=== PATIENT | female | born 1940 | race Caucasian/White ===

== ENCOUNTER 2017-09-26 14:01 | Day surgery (SDC) | payer OTHER, SELFPAY ==
[~2017-09-26] VITALS: Ht 160 cm; Wt 67.3 kg
[~2017-09-26 14:01] MED LIST: ASPI81CH PO; ATOR80 PO; CLOP75 PO; DEXL60CA3; FAMO40; FAMO40 PO; ISODIN20 PO; ISOSORBIDE; Isosorbide Dini30 MG PO; LEVOTHYROXINE; LEVSOD100 PO; LOSA50 PO; LOSARTAN; METF500; METFORMIN; METO50 PO; METOPROLOL; Metformin HCl1000 MG PO; Mobic15 MG PO; Mobic7.5 MG PO; Norco 10-325 T1 EACH PO; OMEGA-3 KRILL1 EAC2 PO; PROCODE120 PO; Pepcid40 MG PO; Prednisone20 MG PO; RED YEAST RIC1000 GM PO; TIZANIDINE HCL4 MG; ZOLP10 PO; Zofran Odt4 MG SL
[2018-07-05] MEDS ORDERED: AMLO5 PO (11:28)
[2018-07-05] MEDS ORDERED: FAMO40 PO (11:29)
[2018-07-05] MEDS ORDERED: ESCI10 PO (11:29)
[2018-07-05] MEDS ORDERED: CLOP75 PO (11:29)
[2018-07-05] MEDS ORDERED: ASPI81CH PO (11:29)
[2018-07-05] MEDS ORDERED: ATOR80 PO (11:29)
[2018-07-05] MEDS ORDERED: LORCET HD 10-31 EACH PO (11:30)
[2018-07-05] MEDS ORDERED: ISODIN10 PO (11:30)
[2018-07-05] MEDS ORDERED: LOSA50 PO (11:31)
[2018-07-05] MEDS ORDERED: METO50 PO (11:31)
[2018-07-05] MEDS ORDERED: LEVSOD100 PO (11:31)
[2018-07-05] MEDS ORDERED: METF500C PO (11:31)
[2018-07-05] MEDS ORDERED: Omeprazole20 M1 PO (11:32)
[2018-07-05] MEDS ORDERED: NITR.4SL SL (11:32)
[2018-07-05] MEDS ORDERED: ALBU90OI61 INH (11:33)
[2018-07-05] MEDS ORDERED: PANT40 PO (11:33)
[2018-07-05] MEDS ORDERED: K-Dur20 MEQ PO (13:03)
[2018-07-05] MEDS ORDERED: Augmentin 875-1 EACH PO (13:03)
[2018-08-04] MEDS ORDERED: ZOLP10 PO (11:29)
[2018-08-04] MEDS ORDERED: Lomotil Tablet1 EACH PO (13:11)
[2018-08-04] MEDS ORDERED: CEPH500 PO (13:11)
== END 2017-09-26 16:33 | disposition home or self-care (01) ==
LOC: ORSCSDS 14:01
DX: R11.2 Nausea with vomiting, unspecified (principal); K44.9 Diaphragmatic hernia without obstruction or gangrene; K22.2 Esophageal obstruction; I25.10 Atherosclerotic heart disease of native coronary artery without angina pectoris; Z80.0 Family history of malignant neoplasm of digestive organs; K29.70 Gastritis, unspecified, without bleeding; K21.9 Gastro-esophageal reflux disease without esophagitis; E78.00 Pure hypercholesterolemia, unspecified; R10.9 Unspecified abdominal pain; E11.9 Type 2 diabetes mellitus without complications; I10 Essential (primary) hypertension; E78.5 Hyperlipidemia, unspecified; Z79.84 Long term (current) use of oral hypoglycemic drugs; Z79.899 Other long term (current) drug therapy
CPT/HCPCS: 82947; 88305; 88342; J7120

== ENCOUNTER 2018-01-09 14:07 | Inpatient (IN) | payer OTHER ==
[~2018-01-09] VITALS: Ht 160 cm; Wt 69.0 kg
[~2018-01-09 14:07] MED LIST changes: +ISODIN20; -ISODIN20 PO
[2018-01-09 14:39] LABS: BASOPHILS ABSOLUTE AUTO 0.07 K/mm3 (0.00-0.23); BASOPHILS PERCENT AUTO 1 % (0-2); EOSINOPHILS ABSOLUTE AUTO 0.53 K/mm3 (0.00-0.68); EOSINOPHILS PERCENT AUTO 6 % (0-6); Hematocrit 34.2 % (33.0-51.0); Hemoglobin 11.2 g/dL (11.5-16.0); IMMATURE GRAN ABSOLUTE AUTO 0.03 K/mm3 (0.00-0.10); IMMATURE GRAN PERCENT AUTO 0 % (0-1); LYMPHOCYTES ABSOLUTE AUTO 2.32 K/mm3 (0.84-5.20); LYMPHOCYTES PERCENT AUTO 27 % (21-46); MONOCYTES ABSOLUTE AUTO 0.76 K/mm3 (0.16-1.47); MONOCYTES PERCENT AUTO 9 % (4-13); Mean Corpuscular HGB Conc 32.7 g/dL (31.5-36.5); Mean Corpuscular Volume 89 fL (80-100); Mean Platelet Volume 11.1 fL (9.1-12.4); NEUTROPHILS ABSOLUTE AUTO 4.94 K/mm3 (1.96-9.15); NEUTROPHILS PERCENT AUTO 57 % (41-73); Platelet Count 262 K/mm3 (150-400); RDW Coefficient Variation 13.2 % (11.7-14.2); RDW Standard Deviation 42.9 fL (35.1-46.3); Red Blood Cell Count 3.86 M/mm3 (3.80-5.20); White Blood Cell Count 8.65 K/mm3 (4.00-11.30)
[2018-01-09 15:03] LABS: Alanine Aminotransfer (ALT/SGP 23 U/L (12-78); Albumin, Blood 3.5 g/dL (3.4-5.0); Albumin/Globulin Ratio 1.1 (0.8-1.8); Alk Phos 61 U/L (50-136); Anion Gap 11 mmol/L (6-16); Aspartate Aminotrans (AST/SGOT 22 U/L (12-37); Bilirubin, Total 0.5 mg/dL (0.1-1.0); Blood Urea Nitrogen 18 mg/dL (8-24); Bun/Creatinine Ratio 19.2 (12.0-20.0); CO2, Blood 23 mmol/L (21-32); Chloride, Blood 108 mmol/L (98-108); Creatinine, Blood 0.94 mg/dL (0.40-1.00); Globulin, Blood 3.1 g/dL (2.2-4.0); Glomerular Filtration Rate >60 (60-); Glucose, Blood 133 mg/dL (70-99); Sodium, Blood 142 mmol/L (136-145); Total Protein, Blood 6.6 g/dL (6.4-8.2); Troponin I <0.015 ng/mL (0.000-0.040)
[2018-01-09 15:07] LABS: Thyroid Stimulating Hormone 0.219 uIU/mL (0.360-4.800)
[2018-01-09 15:37] LABS: Free Thyroxine 1.47 ng/dL (0.70-1.60)
[2018-01-10 02:36] LABS: Alanine Aminotransfer (ALT/SGP 20 U/L (12-78); Albumin, Blood 3.3 g/dL (3.4-5.0); Albumin/Globulin Ratio 1.2 (0.8-1.8); Alk Phos 55 U/L (50-136); Anion Gap 7 mmol/L (6-16); Aspartate Aminotrans (AST/SGOT 18 U/L (12-37); Bilirubin, Total 0.6 mg/dL (0.1-1.0); Blood Urea Nitrogen 17 mg/dL (8-24); Bun/Creatinine Ratio 18.8 (12.0-20.0); CO2, Blood 25 mmol/L (21-32); Chloride, Blood 112 mmol/L (98-108); Globulin, Blood 2.7 g/dL (2.2-4.0); Glomerular Filtration Rate >60 (60-); Glucose, Blood 107 mg/dL (70-99); Potassium, Blood 4.2 mmol/L (3.5-5.5); Sodium, Blood 144 mmol/L (136-145)
[2018-01-11] MEDS ORDERED: METO50 PO (17:45)
[2018-01-11] MEDS ORDERED: AMLO5 PO (17:45)
[2018-01-11] MEDS ORDERED: PANT40 PO (17:46)
== END 2018-01-11 18:33 | disposition home or self-care (01) | DRG 311 ==
LOC: ER 14:07 → MEDS 17:09 → PCU 17:09 → MEDS 18:25 → PCU 01-10 11:09
PROVIDERS: Physician Assistant; Student in an Organized Health Care Education/Training Program
DX: I20.0 Unstable angina (principal); I10 Essential (primary) hypertension
CPT/HCPCS: 36415; 71046; 78452; 80053; 82947; 84439; 84443; 84484; 85025; 85379; 93005; 93010; 93017; 93306; 96360; 99285; A9500; J0280; J0360; J2785; J7030

== ENCOUNTER 2018-03-04 13:44 | Inpatient (IN) | payer OTHER ==
[~2018-03-04] VITALS: Ht 160 cm; Wt 68.2 kg
[~2018-03-04 13:44] MED LIST changes: +AMLO5 PO; -ISODIN20; +ISODIN20 PO; +PANT40 PO
[2018-03-04 19:29] LABS: Hematocrit 30.7 % (33.0-51.0); Hemoglobin 10.3 g/dL (11.5-16.0); Mean Corpuscular HGB Conc 33.6 g/dL (31.5-36.5); Mean Corpuscular Volume 95 fL (80-100); Mean Platelet Volume 10.8 fL (9.1-12.4); Platelet Count 210 K/mm3 (150-400); RDW Coefficient Variation 14.5 % (11.7-14.2); RDW Standard Deviation 43.8 fL (35.1-46.3); Red Blood Cell Count 3.22 M/mm3 (3.80-5.20); White Blood Cell Count 6.18 K/mm3 (4.00-11.30)
[2018-03-04 19:36] LABS: Anion Gap 10 mmol/L (6-16); Blood Urea Nitrogen 9 mg/dL (8-24); Bun/Creatinine Ratio 10.7 (12.0-20.0); CO2, Blood 21 mmol/L (21-32); Calcium, Blood 8.5 mg/dL (8.5-10.1); Chloride, Blood 108 mmol/L (98-108); Creatinine, Blood 0.85 mg/dL (0.40-1.00); Glomerular Filtration Rate >60 (60-); Glucose, Blood 117 mg/dL (70-99); Sodium, Blood 139 mmol/L (136-145)
[2018-03-04 20:51] LABS: Hematocrit 32.3 % (33.0-51.0); Hemoglobin 10.4 g/dL (11.5-16.0)
[2018-03-05 05:24] LABS: Hematocrit 26.2 % (33.0-51.0); Hemoglobin 8.9 g/dL (11.5-16.0)
[2018-03-05 05:42] LABS: Anion Gap 7 mmol/L (6-16); Blood Urea Nitrogen 7 mg/dL (8-24); Bun/Creatinine Ratio 8.4 (12.0-20.0); CO2, Blood 26 mmol/L (21-32); Calcium, Blood 8.2 mg/dL (8.5-10.1); Chloride, Blood 110 mmol/L (98-108); Creatinine, Blood 0.84 mg/dL (0.40-1.00); Glomerular Filtration Rate >60 (60-); Glucose, Blood 98 mg/dL (70-99); Potassium, Blood 3.8 mmol/L (3.5-5.5); Sodium, Blood 143 mmol/L (136-145)
[2018-03-05 13:40] LABS: Hematocrit 24.7 % (33.0-51.0); Hemoglobin 7.9 g/dL (11.5-16.0)
[2018-03-06 03:39] LABS: BASOPHILS ABSOLUTE AUTO 0.05 K/mm3 (0.00-0.23); BASOPHILS PERCENT AUTO 1 % (0-2); EOSINOPHILS ABSOLUTE AUTO 0.43 K/mm3 (0.00-0.68); EOSINOPHILS PERCENT AUTO 6 % (0-6); Hemoglobin 10.6 g/dL (11.5-16.0); IMMATURE GRAN ABSOLUTE AUTO 0.03 K/mm3 (0.00-0.10); IMMATURE GRAN PERCENT AUTO 0 % (0-1); LYMPHOCYTES ABSOLUTE AUTO 2.12 K/mm3 (0.84-5.20); LYMPHOCYTES PERCENT AUTO 29 % (21-46); MONOCYTES ABSOLUTE AUTO 0.67 K/mm3 (0.16-1.47); MONOCYTES PERCENT AUTO 9 % (4-13); Mean Corpuscular HGB 29.1 pg (26.0-34.0); Mean Corpuscular HGB Conc 33.1 g/dL (31.5-36.5); Mean Corpuscular Volume 88 fL (80-100); Mean Platelet Volume 10.6 fL (9.1-12.4); NEUTROPHILS ABSOLUTE AUTO 3.91 K/mm3 (1.96-9.15); NEUTROPHILS PERCENT AUTO 54 % (41-73); Platelet Count 222 K/mm3 (150-400); RDW Coefficient Variation 13.5 % (11.7-14.2); RDW Standard Deviation 41.9 fL (35.1-46.3); Red Blood Cell Count 3.64 M/mm3 (3.80-5.20); White Blood Cell Count 7.21 K/mm3 (4.00-11.30)
[2018-03-06 03:55] LABS: Anion Gap 7 mmol/L (6-16); Blood Urea Nitrogen 13 mg/dL (8-24); Bun/Creatinine Ratio 16.5 (12.0-20.0); CO2, Blood 24 mmol/L (21-32); Calcium, Blood 8.4 mg/dL (8.5-10.1); Chloride, Blood 113 mmol/L (98-108); Creatinine, Blood 0.79 mg/dL (0.40-1.00); Glomerular Filtration Rate >60 (60-); Glucose, Blood 113 mg/dL (70-99); Potassium, Blood 4.1 mmol/L (3.5-5.5); Sodium, Blood 144 mmol/L (136-145)
== END 2018-03-06 13:55 | disposition home or self-care (01) | DRG 920 ==
LOC: ORSCSDS 13:44 → MEDS 18:05 → ICUE 03-05 15:06 → MEDS 03-05 15:06 → ICUE 03-05 15:34
PROVIDERS: Internal Medicine; Internal Medicine Gastroenterology; Nurse Practitioner Acute Care
PROC: 0DBL8ZX Excision of Transverse Colon, Via Natural or Artificial Opening Endoscopic, Diagnostic (ICD-10-PCS; 2018-03-04)
PROC: 30233R1 Transfusion of Nonautologous Platelets into Peripheral Vein, Percutaneous Approach (ICD-10-PCS; 2018-03-04)
PROC: 0DBK8ZX Excision of Ascending Colon, Via Natural or Artificial Opening Endoscopic, Diagnostic (ICD-10-PCS; principal; 2018-03-04 15:15)
PROC: 30233N1 Transfusion of Nonautologous Red Blood Cells into Peripheral Vein, Percutaneous Approach (ICD-10-PCS; 2018-03-05)
DX: K91.840 Postprocedural hemorrhage of a digestive system organ or structure following a digestive system procedure (principal); I47.1 Supraventricular tachycardia; D62 Acute posthemorrhagic anemia; Z79.01 Long term (current) use of anticoagulants; E03.9 Hypothyroidism, unspecified; Z95.5 Presence of coronary angioplasty implant and graft; E78.5 Hyperlipidemia, unspecified; E11.9 Type 2 diabetes mellitus without complications; K21.9 Gastro-esophageal reflux disease without esophagitis; K44.9 Diaphragmatic hernia without obstruction or gangrene; Z79.84 Long term (current) use of oral hypoglycemic drugs; Z87.891 Personal history of nicotine dependence; D12.3 Benign neoplasm of transverse colon; D12.2 Benign neoplasm of ascending colon; K57.30 Diverticulosis of large intestine without perforation or abscess without bleeding
CPT/HCPCS: 36415; 36430; 80048; 82947; 85014; 85018; 85025; 85027; 86850; 86900; 86901; 86923; 88305; G0378; J0360; J3010; J7030; J7040; J7120; P9016; P9035

== ENCOUNTER → 2018-03-28 | Outpatient (CLI) | payer OTHER | LOC: LAB 12:30 → LAB SHORT 12:30 | DX: N39.0 Urinary tract infection, site not specified (principal) | CPT/HCPCS: 87077; 87086; 87186 ==

== ENCOUNTER → 2018-07-24 | Outpatient (CLI) | payer OTHER ==
[~2018-07-24] MED LIST changes: +ALBU90OI61 INH; +Augmentin 875-1 EACH PO; +CEPH500 PO; +ESCI10 PO; +ISODIN10 PO; +K-Dur20 MEQ PO; +LORCET HD 10-31 EACH PO; +Lomotil Tablet1 EACH PO; +METF500C PO; +NITR.4SL SL; +Omeprazole20 M1 PO
== END ==
LOC: LAB SHORT 14:44 → LAB 14:44 → LAB FUT 04-12 11:40
DX: R10.9 Unspecified abdominal pain (principal)
CPT/HCPCS: 87015; 87116; 87206

== ENCOUNTER 2018-09-18 12:48 | Day surgery (SDC) | payer OTHER ==
[~2018-09-18] VITALS: Ht 160 cm; Wt 63.1 kg
--- NOTE | 2018-09-18 13:39 | NUR ---
09/18/18 1339 Lulu Carter GROUNDING PAD ON RIGHT FLANK--NO PROBLEMS
--- NOTE | 2018-09-18 14:55 | NUR ---
09/18/18 1455 Lulu Carter LATE ENTRY---UPON ENTERING STEPDOWN, PATIENT C/O PAIN IN "STOMACH" 02/17 AND SHE DESCRIBES HER PAIN TENDER. ALSO ADMITS TO SORE THROAT 10/20. PATIENT DID VOMIT DURING PROCEDURE I EXPLAINED THIS TO THE PATIENT AND EXPLAINED THIS IS PROBABLY WHY HER THROAT IS SORE. DISCUSSED WITH PATIENT AND TO WATCH CLOSELY FOR ANY RESPIRATORY PROBLEMS, SHORTNESS OF BREATH, FEVER. COUGH, ETC AND CALL DR LOBO IF ANY PROBLEMS. BOTH PATIENT AND SPOUSE VERBALIZED UNDERSTANDING. ABD PAIN CONTINUED AT ROUGHOUT HER RECOVERY. SHE KEPT DESCRIBING IT TENDER. PATIENT REFUSED TO WAIT LONGER, AND WANTED TO GO HOME WITH 610 PAIN. THIS WAS DISCUSSED WITH DR LOBO AND HE AGREES TO HER GOING HOME AND SHE WAS TOLD TO CALL HIM IF ANY PROBLEMS. PATIENT WAS DISCHARGED IN STABLE CONDITION
--- NOTE | 2018-09-18 14:59 | NUR ---
09/18/18 1459 Lulu Carter LATE ENTRY---PATIENT WAS VERY UNCLEAR ABOUT WHEN SHE ACTUALLY STOPPED DRINKING. ADMITTED TO A "MOUTHFUL" OF WATER AT ABOUT NOON BUT WAS UPSET AND APPEARED ANGRY WHEN SHE WAS BEING QUESTIONED. I EXPLAINED WHY THIS WAS IMPORTANT AND SHE VERBALIZED UNDERSTANDING AND STUCK WITH HER PREVIOUS ANSWER OF A MOUTHFUL OF WATER AT NOON
== END 2018-09-18 14:30 | disposition home or self-care (01) ==
LOC: ORSCSDS 12:48
PROVIDERS: Internal Medicine Gastroenterology
PROC: 0DBK8ZX Excision of Ascending Colon, Via Natural or Artificial Opening Endoscopic, Diagnostic (ICD-10-PCS; principal; 2018-09-18 14:15)
DX: D12.2 Benign neoplasm of ascending colon (principal); K64.8 Other hemorrhoids; K57.30 Diverticulosis of large intestine without perforation or abscess without bleeding; Z80.0 Family history of malignant neoplasm of digestive organs; I10 Essential (primary) hypertension; E78.5 Hyperlipidemia, unspecified; E11.9 Type 2 diabetes mellitus without complications; I25.10 Atherosclerotic heart disease of native coronary artery without angina pectoris; Z79.01 Long term (current) use of anticoagulants; Z79.84 Long term (current) use of oral hypoglycemic drugs; Z79.899 Other long term (current) drug therapy; Z87.891 Personal history of nicotine dependence
CPT/HCPCS: 82947; 88305; J2405; J7120

== ENCOUNTER 2018-12-05 02:09 | Inpatient (IN) | payer OTHER ==
[~2018-12-05] VITALS: Ht 160 cm; Wt 62.2 kg
[2018-12-05 02:29] LABS: BASOPHILS ABSOLUTE AUTO 0.08 K/mm3 (0.00-0.23); BASOPHILS PERCENT AUTO 1 % (0-2); EOSINOPHILS ABSOLUTE AUTO 0.68 K/mm3 (0.00-0.68); EOSINOPHILS PERCENT AUTO 7 % (0-6); Hematocrit 38.3 % (33.0-51.0); Hemoglobin 12.7 g/dL (11.5-16.0); IMMATURE GRAN ABSOLUTE AUTO 0.05 K/mm3 (0.00-0.10); IMMATURE GRAN PERCENT AUTO 1 % (0-1); LYMPHOCYTES ABSOLUTE AUTO 1.83 K/mm3 (0.84-5.20); LYMPHOCYTES PERCENT AUTO 19 % (21-46); MONOCYTES PERCENT AUTO 6 % (4-13); Mean Corpuscular HGB 30.2 pg (26.0-34.0); Mean Corpuscular HGB Conc 33.2 g/dL (31.5-36.5); Mean Corpuscular Volume 91 fL (80-100); Mean Platelet Volume 9.6 fL (9.1-12.4); NEUTROPHILS ABSOLUTE AUTO 6.47 K/mm3 (1.96-9.15); NEUTROPHILS PERCENT AUTO 67 % (41-73); Platelet Count 264 K/mm3 (150-400); RDW Coefficient Variation 12.8 % (11.7-14.2); RDW Standard Deviation 41.8 fL (35.1-46.3); White Blood Cell Count 9.71 K/mm3 (4.00-11.30)
[2018-12-05 02:50] LABS: Alanine Aminotransfer (ALT/SGP 26 U/L (12-78); Albumin, Blood 4.1 g/dL (3.4-5.0); Albumin/Globulin Ratio 1.4 (0.8-1.8); Alk Phos 62 U/L (50-136); Anion Gap 9 mmol/L (6-16); Aspartate Aminotrans (AST/SGOT 25 U/L (12-37); Bilirubin, Total 0.7 mg/dL (0.1-1.0); Blood Urea Nitrogen 13 mg/dL (8-24); CO2, Blood 24 mmol/L (21-32); Calcium, Blood 9.9 mg/dL (8.5-10.1); Chloride, Blood 95 mmol/L (98-108); Creatinine, Blood 1.08 mg/dL (0.40-1.00); Globulin, Blood 2.9 g/dL (2.2-4.0); Glomerular Filtration Rate 52 (60-); Glucose, Blood 118 mg/dL (70-99); Potassium, Blood 4.8 mmol/L (3.5-5.5); Sodium, Blood 128 mmol/L (136-145); Troponin I <0.015 ng/mL (0.000-0.040)
[2018-12-05 03:05] LABS: Source, Urine Clean Catch
[2018-12-05 03:07] LABS: Blood, Urine Neg (Neg); Glucose Qualitative, Urine Neg (Neg); Ketones, Urine Neg (Neg); Leukocyte Esterase, Urine 1+ (Neg); Nitrite, Urine Pos (Neg); Protein, Urine Neg (Neg); Urobilinogen, Urine 1+ (Normal)
[2018-12-05 03:35] LABS: Bilirubin, Urine 1+ (Neg)
[2018-12-05 03:36] LABS: Appearance, Urine Clear (Clear); Bacteria Few /hpf; Color, Urine Amber (P-Yellow); Red Blood Cells, Urine Not Seen /hpf (0-2); Squamous Epithelial Cells Not Seen /hpf (Few); White Blood Cells, Urine 0-2 /hpf (0-5)
--- NOTE | 2018-12-05 07:12 | NUR ---
SHIFT SUMMARY PT ADMITTED LAST NIGHT FOR LEFT HIP FX. PT BECAME DIZZY AND CONFUSED FOLLOWING TAKING HER REGULAR AMBIEN AND SOME NYQUIL BEFORE BED, CAUSING HER TO FALL. SHE DOES NOT REMEMBER THE INCIDENT. PT IS A&O, ABLE TO MAKE NEEDS KNOWN. TELE WAS NSR AT TIME OF ASSESSMENT. MARES PLACED IN ED, PT HAD A UTI AT HOME ON ADMIT AND WAS ON HER LAST DOSING OF ANTIBIOTICS PER HER REPORT. REPORT PASSED TO ONCOMING SHIFT.
--- NOTE | 2018-12-05 09:41 | NUR ---
ASSUMED CARE OF PT FROM [facility].
--- NOTE | 2018-12-05 18:16 | NUR ---
SUMMARY NO ACUTE CHANGES SINCE ASSUMING CARE OF PT. MEDICATED PER ORDERS T/O DAY FOR PAIN. MARES CATH DRAINING CLEAR BARLOW YELLOW. [facility]G'S ORDERED THIS AFTERNOON. NO COVERAGE NEEDED FOR DINNER PER ORDERS. PT PLEASANT AND COOPERATIVE. CALL LIGHT IN REACH.
--- NOTE | 2018-12-06 04:47 | NUR ---
SHIFT SUMMARY PT ADMITTED FOR LEFT HIP FX, SCHEDULED FOR SURGERY TODAY. PT IS GENERALLY ORIENTED BUT BECAME CONFUSED AFTER WAKING FROM A DEEP SLEEP AND PULLED OFF HER STAT LOCK, TELE, AND PULSE OX AND TRIED TO GET UP TO STOP THE BEEPING FROM THE PULSE OX. BED ALARM IS ON FOR SAFETY. PT IS NPO IN PREP FOR SURGERY TODAY. TELE WAS SINUS WITH A FIRST DEGREE BLOCK IN THE 60S AT TIME OF ASSESSMENT. MEDIPORE DRESSING TO SKIN TEAR ON RIGHT ARM. PT IS SL, HAD GOOD ORAL INTAKE BEFORE BECOMING NPO. NO COVERAGE INDICATED AT HS. MEDICATED FOR PAIN PER EMAR. WILL CTM UNTIL PASS TO NEXT SHIFT.
--- NOTE | 2018-12-06 11:43 | NUR ---
pt to surgery
--- NOTE | 2018-12-06 11:55 | NUR ---
ASSUMED CARE OF PATIENT RECIEVED REPORT FROM [facility]. ADMISSION TO UNIT STARTED.
--- NOTE | 2018-12-06 14:55 | NUR ---
turned over care to elissa lunsford rn reported off.
--- NOTE | 2018-12-07 05:13 | NUR ---
SHIFT SUMMARY: PT POD #1 FOR L HIP PINNING. GAUZE TO L HIP CDI T/O SHIFT. A&O X4. O2 92-94% WHILE AWAKE. DECREASED TO 88-90% WHILE SLEEPING. ON RA. ALL OTHER VS WNL. PT ENC TO DEEP BREATH. 50% WB ON L LEG. PAIN MANAGED WITH NORCO PER EMAR. GIVEN ZOFRAN ONCE FOR C/O MILD NAUSEA THIS AM. MARES TAKEN OUT AT APPROX 0425. WAITING FOR PT TO VOID.
[2018-12-07 10:01] LABS: BASOPHILS ABSOLUTE AUTO 0.01 K/mm3 (0.00-0.23); BASOPHILS PERCENT AUTO 0 % (0-2); EOSINOPHILS ABSOLUTE AUTO 0.26 K/mm3 (0.00-0.68); EOSINOPHILS PERCENT AUTO 4 % (0-6); Hematocrit 30.3 % (33.0-51.0); Hemoglobin 10.3 g/dL (11.5-16.0); IMMATURE GRAN ABSOLUTE AUTO 0.03 K/mm3 (0.00-0.10); IMMATURE GRAN PERCENT AUTO 0 % (0-1); LYMPHOCYTES PERCENT AUTO 11 % (21-46); MONOCYTES ABSOLUTE AUTO 0.42 K/mm3 (0.16-1.47); MONOCYTES PERCENT AUTO 6 % (4-13); Mean Corpuscular HGB 30.9 pg (26.0-34.0); Mean Corpuscular Volume 91 fL (80-100); Mean Platelet Volume 9.5 fL (9.1-12.4); NEUTROPHILS PERCENT AUTO 79 % (41-73); Platelet Count 221 K/mm3 (150-400); RDW Coefficient Variation 12.6 % (11.7-14.2); RDW Standard Deviation 41.2 fL (35.1-46.3); Red Blood Cell Count 3.33 M/mm3 (3.80-5.20); White Blood Cell Count 7.32 K/mm3 (4.00-11.30)
--- NOTE | 2018-12-07 10:21 | NUR ---
DR YOUNG RECENTLY HERE. DISCUSSED BOWEL CARE WITH DR AND PT.
[2018-12-07 10:26] LABS: Alanine Aminotransfer (ALT/SGP 17 U/L (12-78); Albumin/Globulin Ratio 1.1 (0.8-1.8); Alk Phos 48 U/L (50-136); Anion Gap 9 mmol/L (6-16); Aspartate Aminotrans (AST/SGOT 20 U/L (12-37); Bilirubin, Total 0.7 mg/dL (0.1-1.0); Blood Urea Nitrogen 12 mg/dL (8-24); Bun/Creatinine Ratio 13.5 (12.0-20.0); CO2, Blood 23 mmol/L (21-32); Calcium, Blood 8.2 mg/dL (8.5-10.1); Chloride, Blood 90 mmol/L (98-108); Creatinine, Blood 0.89 mg/dL (0.40-1.00); Globulin, Blood 2.8 g/dL (2.2-4.0); Glomerular Filtration Rate >60 (60-); Glucose, Blood 168 mg/dL (70-99); Potassium, Blood 3.8 mmol/L (3.5-5.5); Sodium, Blood 122 mmol/L (136-145); Total Protein, Blood 5.8 g/dL (6.4-8.2)
--- NOTE | 2018-12-07 17:04 | NUR ---
DR YOUNG REPORTS SODIUM LEVEL LOW AND REPORTS WILL PLACE ORDERS FOR FLUID RESTRICTION AND MEDICATIONS. DISCUSSED PT'S HX, AND PRESENTLY OF HAVING EMESIS AFTER EATING, POOR GAG REFLEX (EMESIS AFTER COUGHING), ACTIVITY SOME TIMES PER PT.
--- NOTE | 2018-12-07 17:07 | NUR ---
SHIFT SUMMARY PT DRINKING WATER WELL. PT BEEN UP TO CHAIR MOST OF DAY. PT UP WITH ASSIST USING WALKER. PT HAVING EMESIS AT TIMES. PT VOIDING, PASSING GAS. DR YOUNG DISCUSSED BOWEL CARE WITH PT EARLIER TODAY AND PT REPORTED "GOES FROM NOT POOPING FOR A WEEK TO HAVING DIARRHEA IF TAKING TOO MANY STOOL SOFTENERS". PT REFUESED SUPPOSITORY EARLIER TODAY. DR YOUNG REPORTS WILL PLACE ORDERS FOR FLUID RESTRICTION R/T PT'S SODIUM LEVEL.
--- NOTE | 2018-12-07 17:19 | NUR ---
DR YOUNG REPORTS TO NOT HAVE PT ON FLUID RESTRTICTION AT THIS TIME. DISCUSSED PT'S REQ FOR TUMS. DR YOUNG REQ TO HAVE CONSULT FOR DR MATHIAS TO SEE PT.
--- NOTE | 2018-12-07 17:43 | NUR ---
DR MATHIAS BEEN NOTIFIED OF CONSULT. SEE ORDERS. LAB NOTIFIED OF STAT LABS.
[2018-12-07 18:18] LABS: Uric Acid, Blood 3.4 mg/dL (2.6-6.0)
--- NOTE | 2018-12-07 20:17 | NUR ---
PT USED BATHROOM CALL LIGHT, I WAS GOING IN PT WAS ALMOST BACK TO CHAIR ON HER OWN. PT REMINDED TO CALL AND WAIT FOR ASSISTANCE BEFORE SHE GETS UP. PT REMINDED TO WAIT FOR HELP AND NOT GET UP BY HERSELF
--- NOTE | 2018-12-08 04:19 | NUR ---
SHIFT SUMMARY: PT A&O X4. VS WNL. NEW ORDERS FROM DR MATHIAS FOR SOIDUM CHLORIDE TABS, LASIX AND POTASSIUM CHLORIDE R/T LAB RESULTS. PT NOW ON 1000 ML FLUID RESTRICTION. PAIN MANAGED WITH NORCO PER EMAR. DENIES N/V THROUGHOUT SHIFT. PT OOB SEVERAL TIMES TO BRP. USING WALKER WITH ONE ASSIST. 50% WB TO LEFT LEG. VOIDING WELL. WILL CTM LABS.
[2018-12-08 05:59] LABS: Hematocrit 29.6 % (33.0-51.0); Hemoglobin 10.1 g/dL (11.5-16.0)
[2018-12-08 06:22] LABS: Albumin, Blood 3.2 g/dL (3.4-5.0); Anion Gap 4 mmol/L (6-16); Blood Urea Nitrogen 13 mg/dL (8-24); Bun/Creatinine Ratio 15.5 (12.0-20.0); CO2, Blood 30 mmol/L (21-32); Calcium, Blood 9.2 mg/dL (8.5-10.1); Chloride, Blood 96 mmol/L (98-108); Creatinine, Blood 0.84 mg/dL (0.40-1.00); Glomerular Filtration Rate >60 (60-); Glucose, Blood 135 mg/dL (70-99); Magnesium, Blood 1.6 mg/dL (1.6-2.4); Phosphorus, Blood 3.6 mg/dL (2.5-4.9); Sodium, Blood 130 mmol/L (136-145)
--- NOTE | 2018-12-08 09:51 | NUR ---
DR YOUNG HERE, DISCUSSED PT'S STATUS.
--- NOTE | 2018-12-08 19:07 | NUR ---
SHIFT SUMMARY PT BEEN EATING AND DRINKING WITHOUT DIFFICULTY UNTIL THIS EVENING. PT RECENTLY BEEN HAVING "CRAMPING IN ABD", DISCUSSED LACTULOSE MEDICATION TO HAVE BM. PT RECENTLY MED FOR HAVING SMALL AMT OF EMESIS, "LOOKED LIKE LUNCH". PT MED FOR NAUSEA AND GAS PAINS. PT BEEN UP IN CHAIR MOST DAY ALTHOUGH TOOK A COUPLE NAPS IN BED WELL. PT APPEARED TO BE HAVING A GOOD DAY UNTIL THIS EVENING WHEN COMPLAINING OF CRAMPING AND NAUSEA WITH EMESIS.
--- NOTE | 2018-12-09 05:32 | NUR ---
SHIFT SUMMARY: PT GIVEN LACTULOSE DURING DAY YESTERDAY. PT C/O STOMACH CRAMPING. HAD 4 EPISODES OF DIARRHEA. PT WAS ABLE TO REST COMFORTABLY AFTER. SOME NAUSEA IN BEGINNING OF SHIFT. RESOLVED. OOB TO BRP W/FWW. MADELINE ACTIVITY WELL. NO C/O PAIN TO LEFT HIP. DRESSING CDI.
[2018-12-09 06:08] LABS: Hematocrit 34.5 % (33.0-51.0); Hemoglobin 10.9 g/dL (11.5-16.0)
[2018-12-09 06:35] LABS: Magnesium, Blood 1.9 mg/dL (1.6-2.4)
[2018-12-09 06:38] LABS: Albumin, Blood 3.1 g/dL (3.4-5.0); Anion Gap 11 mmol/L (6-16); Blood Urea Nitrogen 15 mg/dL (8-24); Bun/Creatinine Ratio 18.1 (12.0-20.0); CO2, Blood 18 mmol/L (21-32); Calcium, Blood 9.2 mg/dL (8.5-10.1); Chloride, Blood 103 mmol/L (98-108); Creatinine, Blood 0.83 mg/dL (0.40-1.00); Glomerular Filtration Rate >60 (60-); Glucose, Blood 124 mg/dL (70-99); Phosphorus, Blood 5.1 mg/dL (2.5-4.9); Potassium, Blood 4.3 mmol/L (3.5-5.5); Sodium, Blood 132 mmol/L (136-145)
[2018-12-09 07:58] LABS: PCO2 Arterial 35.7 mmHg (35-45); PO2 Arterial 71.6 mmHg (80-100); pH Blood Arterial 7.42 (7.35-7.45)
--- NOTE | 2018-12-09 17:35 | NUR ---
CALL PLACED TO [facility], ATTEMPTED TO CALL REPORT. LEFT A MESSAGE WITH BRIAN HE STATED HE WOULD HAVE FARHAN CALL BACK FOR REPORT. BRIAN NOTIFIED THAT PT IS SCHEDULED TO LEAVE AT 1800.
--- NOTE | 2018-12-09 17:53 | NUR ---
REPORT GIVEN TO FARHAN AT [facility].
== END 2018-12-09 19:20 | DRG 480 ==
LOC: ER 02:09 → SURS 04:09
PROVIDERS: Emergency Medicine; Internal Medicine; Internal Medicine Nephrology; Orthopaedic Surgery; ADMIT Hospitalist
PROC: 0QH734Z Insertion of Internal Fixation Device into Left Upper Femur, Percutaneous Approach (ICD-10-PCS; principal; 2018-12-06 12:30)
DX: S72.002A Fracture of unspecified part of neck of left femur, initial encounter for closed fracture (principal); G92 Toxic encephalopathy; N17.9 Acute kidney failure, unspecified; E87.1 Hypo-osmolality and hyponatremia; D62 Acute posthemorrhagic anemia; E87.2 Acidosis; I12.9 Hypertensive chronic kidney disease with stage 1 through stage 4 chronic kidney disease, or unspecified chronic kidney disease; E11.22 Type 2 diabetes mellitus with diabetic chronic kidney disease; N18.9 Chronic kidney disease, unspecified; T42.6X5A Adverse effect of other antiepileptic and sedative-hypnotic drugs, initial encounter; E78.5 Hyperlipidemia, unspecified; E03.9 Hypothyroidism, unspecified; W18.30XA Fall on same level, unspecified, initial encounter; K59.00 Constipation, unspecified; I25.10 Atherosclerotic heart disease of native coronary artery without angina pectoris; Z98.61 Coronary angioplasty status; K21.9 Gastro-esophageal reflux disease without esophagitis; E83.39 Other disorders of phosphorus metabolism; E86.0 Dehydration; E88.09 Other disorders of plasma-protein metabolism, not elsewhere classified; F03.90 Unspecified dementia, unspecified severity, without behavioral disturbance, psychotic disturbance, mood disturbance, and anxiety; Z87.891 Personal history of nicotine dependence
CPT/HCPCS: 36415; 36600; 51702; 70450; 71045; 73502; 80053; 80069; 81001; 82533; 82803; 82947; 83735; 83930; 84295; 84443; 84484; 84550; 85014; 85018; 85025; 87086; 93005; 93010; 94762; 96374-59; 97110; 97116; 97162; 97530; 99285-25; A9270-GY; C1713; C1769; J0690; J1100; J1940; J2405; J2710; J3010; J7030; J7120

== ENCOUNTER → 2019-01-14 | Outpatient (CLI) | payer OTHER | END | disposition home or self-care (01) | LOC: LAB SHORT 13:30 → LAB 13:30 | DX: N39.0 Urinary tract infection, site not specified (principal) | CPT/HCPCS: 87077; 87086; 87186 ==

== ENCOUNTER → 2019-01-30 | Outpatient (CLI) | payer OTHER ==
[2019-01-30 16:45] LABS: Microalbumin, Urine Quant. <5.000 mg/L (0.000-20.000); Protein, Urine Quantitative <5.0 mg/dL (0.0-11.9)
[2019-01-31 08:35] LABS: Stool Occult Bld Immuno 1 Negative (NEGATIVE)
== END | disposition home or self-care (01) ==
LOC: LAB 13:47 → LAB SHORT 13:47
PROVIDERS: Internal Medicine Nephrology
DX: N18.3 Chronic kidney disease, stage 3 (moderate) (principal); D63.1 Anemia in chronic kidney disease; D51.8 Other vitamin B12 deficiency anemias; D52.8 Other folate deficiency anemias; D50.9 Iron deficiency anemia, unspecified
CPT/HCPCS: 81050; 82043; 82274; 82570; 84156

== ENCOUNTER 2019-06-02 11:59 | Emergency (ER) | payer OTHER ==
[~2019-06-02] VITALS: Ht 162.6 cm; Wt 61.7 kg
[2019-06-02 12:37] LABS: BASOPHILS ABSOLUTE AUTO 0.04 K/mm3 (0.00-0.23); BASOPHILS PERCENT AUTO 1 % (0-2); EOSINOPHILS ABSOLUTE AUTO 0.24 K/mm3 (0.00-0.68); EOSINOPHILS PERCENT AUTO 5 % (0-6); Hematocrit 35.9 % (33.0-51.0); Hemoglobin 11.8 g/dL (11.5-16.0); IMMATURE GRAN ABSOLUTE AUTO 0.02 K/mm3 (0.00-0.10); IMMATURE GRAN PERCENT AUTO 0 % (0-1); LYMPHOCYTES ABSOLUTE AUTO 0.92 K/mm3 (0.84-5.20); LYMPHOCYTES PERCENT AUTO 18 % (21-46); MONOCYTES ABSOLUTE AUTO 0.43 K/mm3 (0.16-1.47); MONOCYTES PERCENT AUTO 8 % (4-13); Mean Corpuscular HGB 30.9 pg (26.0-34.0); Mean Corpuscular HGB Conc 32.9 g/dL (31.5-36.5); Mean Corpuscular Volume 94 fL (80-100); Mean Platelet Volume 10.1 fL (9.1-12.4); NEUTROPHILS ABSOLUTE AUTO 3.46 K/mm3 (1.96-9.15); NEUTROPHILS PERCENT AUTO 68 % (41-73); Platelet Count 207 K/mm3 (150-400); RDW Coefficient Variation 12.3 % (11.7-14.2); RDW Standard Deviation 42.6 fL (35.1-46.3); Red Blood Cell Count 3.82 M/mm3 (3.80-5.20); White Blood Cell Count 5.11 K/mm3 (4.00-11.30)
[2019-06-02 13:02] LABS: Alanine Aminotransfer (ALT/SGP 18 U/L (12-78); Albumin, Blood 3.6 g/dL (3.4-5.0); Albumin/Globulin Ratio 1.2 (0.8-1.8); Alk Phos 63 U/L (50-136); Anion Gap 8 mmol/L (6-16); Aspartate Aminotrans (AST/SGOT 16 U/L (12-37); Bilirubin, Total 0.3 mg/dL (0.1-1.0); Blood Urea Nitrogen 16 mg/dL (8-24); CO2, Blood 24 mmol/L (21-32); Calcium, Blood 9.2 mg/dL (8.5-10.1); Chloride, Blood 103 mmol/L (98-108); Creatinine, Blood 0.94 mg/dL (0.40-1.00); Globulin, Blood 2.9 g/dL (2.2-4.0); Glomerular Filtration Rate >60 (60-); Glucose, Blood 143 mg/dL (70-99); Potassium, Blood 4.3 mmol/L (3.5-5.5); Sodium, Blood 135 mmol/L (136-145); Total Protein, Blood 6.5 g/dL (6.4-8.2)
[2019-06-02 13:43] LABS: Source, Urine Clean Catch
[2019-06-02 13:54] LABS: Bilirubin, Urine Neg (Neg); Blood, Urine Neg (Neg); Glucose Qualitative, Urine Neg (Neg); Ketones, Urine Neg (Neg); Leukocyte Esterase, Urine 3+ (Neg); Nitrite, Urine Neg (Neg); Protein, Urine Neg (Neg); Urobilinogen, Urine NORM (Normal)
[2019-06-02 14:06] LABS: Appearance, Urine Clear (Clear); Color, Urine Yellow (P-Yellow)
[2019-06-02 14:07] LABS: Bacteria Many /hpf; Red Blood Cells, Urine 0-2 /hpf (0-2); Squamous Epithelial Cells Few /hpf (Few)
[2019-06-02] MEDS ORDERED: Cipro250 MG PO (15:21)
== END 2019-06-02 15:30 | disposition home or self-care (01) ==
LOC: ER 11:59
PROVIDERS: Emergency Medicine
DX: N39.0 Urinary tract infection, site not specified (principal); R26.0 Ataxic gait; E78.5 Hyperlipidemia, unspecified; E03.9 Hypothyroidism, unspecified; I25.2 Old myocardial infarction; I25.10 Atherosclerotic heart disease of native coronary artery without angina pectoris; G47.00 Insomnia, unspecified; Z79.899 Other long term (current) drug therapy; Z79.02 Long term (current) use of antithrombotics/antiplatelets; Z79.84 Long term (current) use of oral hypoglycemic drugs
CPT/HCPCS: 36415; 70450; 80053; 81001; 85025; 87086; 93005; 93010; 99285-25

== ENCOUNTER 2019-06-06 14:18 | Emergency (ER) | payer OTHER ==
[~2019-06-06] VITALS: Ht 162.6 cm; Wt 61.2 kg
[~2019-06-06 14:18] MED LIST changes: +Cipro250 MG PO
[2019-06-06 14:57] LABS: BASOPHILS ABSOLUTE AUTO 0.06 K/mm3 (0.00-0.23); BASOPHILS PERCENT AUTO 1 % (0-2); EOSINOPHILS ABSOLUTE AUTO 0.38 K/mm3 (0.00-0.68); EOSINOPHILS PERCENT AUTO 6 % (0-6); Hematocrit 34.8 % (33.0-51.0); Hemoglobin 11.5 g/dL (11.5-16.0); IMMATURE GRAN ABSOLUTE AUTO 0.03 K/mm3 (0.00-0.10); IMMATURE GRAN PERCENT AUTO 0 % (0-1); LYMPHOCYTES ABSOLUTE AUTO 1.61 K/mm3 (0.84-5.20); LYMPHOCYTES PERCENT AUTO 24 % (21-46); MONOCYTES ABSOLUTE AUTO 0.69 K/mm3 (0.16-1.47); MONOCYTES PERCENT AUTO 10 % (4-13); Mean Corpuscular HGB 31.2 pg (26.0-34.0); Mean Corpuscular Volume 94 fL (80-100); Mean Platelet Volume 10.1 fL (9.1-12.4); NEUTROPHILS ABSOLUTE AUTO 4.04 K/mm3 (1.96-9.15); NEUTROPHILS PERCENT AUTO 59 % (41-73); Platelet Count 269 K/mm3 (150-400); RDW Coefficient Variation 12.5 % (11.7-14.2); RDW Standard Deviation 42.8 fL (35.1-46.3); Red Blood Cell Count 3.69 M/mm3 (3.80-5.20); White Blood Cell Count 6.81 K/mm3 (4.00-11.30)
[2019-06-06 15:14] LABS: International Normalized Ratio 0.97; Prothrombin Time Results 10.3 Sec (9.7-11.5)
[2019-06-06 15:18] LABS: Albumin, Blood 3.6 g/dL (3.4-5.0); Albumin/Globulin Ratio 1.2 (0.8-1.8); Bilirubin, Total 0.3 mg/dL (0.1-1.0); Calcium, Blood 9.1 mg/dL (8.5-10.1); Creatinine, Blood 1.15 mg/dL (0.40-1.00); Globulin, Blood 2.9 g/dL (2.2-4.0); Potassium, Blood 4.8 mmol/L (3.5-5.5); Total Protein, Blood 6.5 g/dL (6.4-8.2)
[2019-06-06] MEDS ORDERED: ONDA4ODT MM (16:52)
[2019-06-06] MEDS ORDERED: Norco 5-325 Ta1 EACH PO (17:42)
== END 2019-06-06 17:51 | disposition home or self-care (01) ==
LOC: ER 14:18
PROVIDERS: Physician Assistant
DX: K85.30 Drug induced acute pancreatitis without necrosis or infection (principal); E11.65 Type 2 diabetes mellitus with hyperglycemia; I25.2 Old myocardial infarction; I25.10 Atherosclerotic heart disease of native coronary artery without angina pectoris; E03.9 Hypothyroidism, unspecified; I95.9 Hypotension, unspecified; Z79.899 Other long term (current) drug therapy; Z79.02 Long term (current) use of antithrombotics/antiplatelets; Z79.84 Long term (current) use of oral hypoglycemic drugs
CPT/HCPCS: 36415; 71046; 76705; 80053; 83690; 83880; 84484; 85025; 85610; 85730; 93005; 93010; 96374; 99285-25; J2405; J7030

== ENCOUNTER 2019-09-02 11:47 | Emergency (ER) | payer OTHER ==
[~2019-09-02] VITALS: Ht 162.6 cm; Wt 60.3 kg
[~2019-09-02 11:47] MED LIST changes: +Norco 5-325 Ta1 EACH PO; +ONDA4ODT MM
[2019-09-02 12:34] LABS: BASOPHILS ABSOLUTE AUTO 0.09 K/mm3 (0.00-0.23); BASOPHILS PERCENT AUTO 1 % (0-2); EOSINOPHILS ABSOLUTE AUTO 0.22 K/mm3 (0.00-0.68); EOSINOPHILS PERCENT AUTO 3 % (0-6); Hematocrit 37.7 % (33.0-51.0); Hemoglobin 12.2 g/dL (11.5-16.0); IMMATURE GRAN ABSOLUTE AUTO 0.01 K/mm3 (0.00-0.10); IMMATURE GRAN PERCENT AUTO 0 % (0-1); LYMPHOCYTES ABSOLUTE AUTO 1.47 K/mm3 (0.84-5.20); LYMPHOCYTES PERCENT AUTO 20 % (21-46); MONOCYTES ABSOLUTE AUTO 0.55 K/mm3 (0.16-1.47); MONOCYTES PERCENT AUTO 8 % (4-13); Mean Corpuscular HGB Conc 32.4 g/dL (31.5-36.5); Mean Corpuscular Volume 96 fL (80-100); Mean Platelet Volume 10.5 fL (9.1-12.4); NEUTROPHILS ABSOLUTE AUTO 4.96 K/mm3 (1.96-9.15); NEUTROPHILS PERCENT AUTO 68 % (41-73); Platelet Count 305 K/mm3 (150-400); RDW Coefficient Variation 13.1 % (11.7-14.2); RDW Standard Deviation 45.1 fL (35.1-46.3); Red Blood Cell Count 3.94 M/mm3 (3.80-5.20)
[2019-09-02 12:35] LABS: Source, Urine Clean Catch
[2019-09-02 12:44] LABS: Alanine Aminotransfer (ALT/SGP 25 U/L (12-78); Albumin, Blood 4.2 g/dL (3.4-5.0); Albumin/Globulin Ratio 1.4 (0.8-1.8); Alk Phos 62 U/L (50-136); Anion Gap 8 mmol/L (6-16); Aspartate Aminotrans (AST/SGOT 22 U/L (12-37); Bilirubin, Total 0.5 mg/dL (0.1-1.0); Blood Urea Nitrogen 23 mg/dL (8-24); Bun/Creatinine Ratio 14.9 (12.0-20.0); CO2, Blood 21 mmol/L (21-32); Calcium, Blood 9.9 mg/dL (8.5-10.1); Chloride, Blood 107 mmol/L (98-108); Creatinine, Blood 1.54 mg/dL (0.40-1.00); Ethanol (Alcohol), Blood, Med <3 mg/dL; Globulin, Blood 3.1 g/dL (2.2-4.0); Glomerular Filtration Rate 34 (60-); Glucose, Blood 126 mg/dL (70-99); Potassium, Blood 4.5 mmol/L (3.5-5.5); Sodium, Blood 136 mmol/L (136-145); Thyroxine (T4) 13.8 ug/dL (4.8-13.9); Total Protein, Blood 7.3 g/dL (6.4-8.2)
[2019-09-02 12:59] LABS: Bilirubin, Urine Neg (Neg); Blood, Urine Neg (Neg); Glucose Qualitative, Urine Neg (Neg); Ketones, Urine Neg (Neg); Leukocyte Esterase, Urine 3+ (Neg); Nitrite, Urine Neg (Neg); Protein, Urine 1+ (Neg); Specific Gravity, Urine 1.015 (1.003-1.022); Urobilinogen, Urine NORM (Normal)
[2019-09-02 13:10] LABS: Appearance, Urine Hazy (Clear); Bacteria Rare /hpf; Color, Urine Yellow (P-Yellow); Red Blood Cells, Urine Not Seen /hpf (0-2); Squamous Epithelial Cells Few /hpf (Few)
[2019-09-02 13:36] LABS: U Amphetamine Screen Not Detected; U Barbituate Screen Not Detected; U Benzodiazapine Screen Not Detected; U Buprenorphine Screen Not Detected; U Cannabinoids Screen Not Detected; U Cocaine Screen Not Detected; U Methadone Screen Not Detected; U Methamphetamine Screen Not Detected; U Opiates Screen DETECTED; U Oxycodone Screen Not Detected; U Phencyclidine Screen Not Detected; U Propoxyphene Screen Not Detected
[2019-09-02] MEDS ORDERED: BUPR150ER PO (14:22)
[2019-09-02] MEDS ORDERED: POTCHL20ER PO (14:22)
[2019-09-02] MEDS ORDERED: METO50ER PO (14:23)
[2019-09-02] MEDS ORDERED: LOSA50 PO (14:23)
[2019-09-02] MEDS ORDERED: Norco 10-325 T1 EACH PO (14:23)
[2019-09-02] MEDS ORDERED: SINEMET 25-1001 EACH PO (14:23)
[2019-09-02] MEDS ORDERED: CLOP75 PO (14:24)
[2019-09-02] MEDS ORDERED: VITAMIN D350 MCG PO (14:24)
[2019-09-02] MEDS ORDERED: SEROQUEL25 MG PO (18:22)
== END 2019-09-02 19:19 | disposition home or self-care (01) ==
LOC: ER 11:47
PROVIDERS: Emergency Medicine
DX: R44.1 Visual hallucinations (principal); R44.0 Auditory hallucinations; G20 Parkinson's disease; I25.2 Old myocardial infarction; Z79.899 Other long term (current) drug therapy; Z79.84 Long term (current) use of oral hypoglycemic drugs; Z79.01 Long term (current) use of anticoagulants
CPT/HCPCS: 36415; 70450; 80053; 81001; 84436; 84443; 85025; 87086; 99285-25; G0480; Q3014

== ENCOUNTER → 2019-10-03 | Outpatient (CLI) | payer OTHER ==
[~2019-10-03] MED LIST changes: +BUPR150ER PO; +METO50ER PO; +POTCHL20ER PO; +SEROQUEL25 MG PO; +SINEMET 25-1001 EACH PO; +VITAMIN D350 MCG PO
== END | disposition home or self-care (01) ==
LOC: LAB 11:00 → LAB SHORT 11:00
DX: N39.0 Urinary tract infection, site not specified (principal)
CPT/HCPCS: 87077; 87086; 87186